=== PATIENT | male | born 1960 | race African-American/Black ===

== ENCOUNTER 2024-09-13 11:00 | Outpatient (CLI) | payer MEDICARE | END 2024-09-13 11:01 | disposition home or self-care (01) | LOC: PET 11:00 | PROVIDERS: ATTEND Internal Medicine Hematology & Oncology | DX: C34.02 Malignant neoplasm of left main bronchus (principal); C34.32 Malignant neoplasm of lower lobe, left bronchus or lung; R91.1 Solitary pulmonary nodule | CPT/HCPCS: 78815; A9552 ==